=== PATIENT | male | born 1955 | race Caucasian/White ===

== ENCOUNTER → 2025-08-06 | Outpatient (CLI) | payer MEDICARE, SELFPAY ==
[2025-08-06 11:34] LABS: PSA,Total - Annual Screen 1.95 ng/mL (0.02-4.00)
== END | disposition home or self-care (01) ==
LOC: LAB.FUTURE 10:31 → LAB 10:32
PROVIDERS: Referring Provider Urology; Visit Provider Urology
DX: Z12.5 Encounter for screening for malignant neoplasm of prostate (principal)
CPT/HCPCS: 36415; 84153; G0103